=== PATIENT | female | born 1955 | race Caucasian/White ===

== ENCOUNTER → 2016-05-14 | Outpatient (CLI) | payer BC, OTHER ==
--- NOTE | 2016-05-15 08:38 | MM ---
Reason for exam: screening (asymptomatic). Last mammogram was performed 2 years and 1 month ago. History: Patient is postmenopausal. Took hormonal contraceptives for 4 years. Physical Findings: A clinical breast exam by your physician is recommended on an annual basis and results should be correlated with mammographic findings. MG Screening Mammo w CAD Bilateral CC and MLO view(s) were taken. Prior study comparison: April 26, 2014, bilateral MG screening mammo w CAD. July 06, 2010, bilateral digital screening mammo w/CAD. There are scattered fibroglandular densities. Finding: There are vascular calcifications in the posterior position of the right breast. There is no discrete abnormality. ASSESSMENT: Negative, BI-RAD 1 RECOMMENDATION: Routine screening mammogram of both breasts in 1 year.
== END | disposition home or self-care (01) ==
LOC: RADMAMWWP 13:38
PROVIDERS: ATTEND Family Medicine
DX: Z12.31 Encounter for screening mammogram for malignant neoplasm of breast (principal)

== ENCOUNTER → 2017-04-17 | Outpatient (CLI) | payer OTHER ==
--- NOTE | 2017-04-17 12:05 | CT ---
EXAMINATION TYPE: CT sinus wo con DATE OF EXAM: 04/17/2017 COMPARISON: NONE HISTORY: 61-year-old female Chronic sinusitis CT DLP: 618.10 mGycm Automated exposure control for dose reduction was used. TECHNIQUE: Noncontrast axial views of the paranasal sinuses were obtained. Coronal reconstructions pe rformed. FINDINGS: Evidence of prior FESS with medial maxillary antrectomies. There is moderate mucosal thickening withi n the right maxillary sinus and moderate to severe within the left maxillary sinus. Lobulated area at the left maxillary antrum measures 2.5 cm, axial image 20 and could represent a large polyp or mucos al retention cyst. Complete opacification of the left sphenoid sinus and near complete opacification of the right spheno id sinus. Complete opacification of the left ethmoid air cells and anterior right ethmoid air cells. Partial opacification of posterior right ethmoid air cells. Complete opacification of the bilateral frontal sinuses. Hyperdense material is interposed throughout the sinus opacification. No clear calcifications are mirta ntified. No air-fluid level. The imaged brain and orbits are normal in appearance. Visualized mastoid air cells and middle ear cavities are well pneumatized. Reformatted images confirm above findings. IMPRESSION: 1. Prior FESS with medial maxillary antrectomies. There is severe chronic pansinusitis. Hyperdense ma terial involving the sinus opacification probably represents inspissated mucus. Correlate to exclude superimposed aspergillus infection. ENT referral may be of benefit. 2. A 2.5 cm lobulated area at the left maxillary antrum could represent a polyp.
== END | disposition home or self-care (01) ==
LOC: RADCTMAIN 11:14
PROVIDERS: ATTEND Family Medicine
DX: J32.4 Chronic pansinusitis (principal); J34.89 Other specified disorders of nose and nasal sinuses; Z98.890 Other specified postprocedural states
CPT/HCPCS: 70486

== ENCOUNTER → 2018-01-15 | Outpatient (CLI) | payer BC ==
--- NOTE | 2018-01-15 16:13 | BD ---
EXAMINATION TYPE: Axial Bone Density DATE OF EXAM: 01/15/2018 COMPARISON: NONE CLINICAL HISTORY: post menopausal Height: 5'6 Weight: 207 FRAX RISK QUESTIONS: Secondary Osteoporosis: RISK FACTORS HISTORY OF: Postmenopausal woman: y MEDICATIONS: Additional Medications: blood pressure, Advair, nasal spray Additional History: EXAM MEASUREMENTS: Bone mineral densitometry was performed using the [employer] System. Bone mineral density as measured about the Lumbar spine is: ----- L1-L4(G/cm2): 1.309 T Score Values are as follows: ----- L2: 0.7 ----- L3: 1.3 ----- L4: 1.6 ----- L1-L4: 1.1 Bone mineral density about the R hip (g/cm2): 1.008 Bone mineral density about the L hip (g/cm2): 0.929 T Score values are as follows: -----R Neck: -0.2 -----L Neck: -0.8 -----R Total: 0.4 -----L Total: 0.3 IMPRESSION: Normal (Values between +1 and -1 indicate normal bone mass). Consider repeating this study in 5 year s or sooner if there is some new clinical indication. NOTE: T-SCORE=SD OF THE YOUNG ADULT MEAN.
--- NOTE | 2018-01-16 12:08 | MM ---
Reason for exam: screening (asymptomatic). Last mammogram was performed 1 year and 8 months ago. History: Patient is postmenopausal. Took hormonal contraceptives for 4 years. MG 3D Screening Mammo W/Cad Bilateral CC and MLO view(s) were taken. Prior study comparison: May 14, 2016, bilateral MG screening mammo w CAD. April 26, 2014, bilateral MG screening mammo w CAD. There are scattered fibroglandular densities. No discrete abnormality. No significant new finding since most recent study. ASSESSMENT: Negative, BI-RAD 1 RECOMMENDATION: Routine screening mammogram of both breasts in 1 year.
== END ==
LOC: RADMAMWWP 11:59
PROVIDERS: ATTEND Obstetrics & Gynecology
DX: Z12.31 Encounter for screening mammogram for malignant neoplasm of breast (principal); Z78.0 Asymptomatic menopausal state
CPT/HCPCS: 77063; 77067; 77080

== ENCOUNTER 2018-05-28 22:40 | Emergency (ER) | payer BC ==
[2018-05-28] MEDS ORDERED: MAG HYDROX/AL HYDROX/SIMETH 30 ML, HYOSCYAMINE ELIXIR 10 ML, CIMETIDINE HCL 300 MG, LID... PO STA ×4 (23:03)
[2018-05-28 23:11] VITALS: RESP 18
[2018-05-28 23:31] LABS: Anisocytosis Slight; Basophils % (A) 0 %; Eosinophils # (A) 0.3 k/uL (0-0.7); Eosinophils % (A) 4 %; HGB 12.6 gm/dL (11.4-16.0); Lymphocytes # (A) 1.2 k/uL (1.0-4.8); Lymphocytes % (A) 14 %; MCH 26.4 pg (25.0-35.0); MCHC 31.5 g/dL (31.0-37.0); MCV 83.9 fL (80.0-100.0); Mean Platelet Volume 6.5; Monocytes # (A) 0.4 k/uL (0-1.0); Monocytes % (A) 5 %; Neutrophils # (A) 6.6 k/uL (1.3-7.7); Neutrophils % (A) 77 %; Platelet Count 295 k/uL (150-450); RBC 4.77 m/uL (3.80-5.40); RDW 16.1 % (11.5-15.5); WBC 8.6 k/uL (3.8-10.6)
[2018-05-28 23:42] LABS: Albumin 3.9 g/dL (3.5-5.0); Calcium 9.3 mg/dL (8.4-10.2); Potassium 3.4 mmol/L (3.5-5.1); Total Bilirubin 0.4 mg/dL (0.2-1.3)
[2018-05-28 23:44] LABS: Partial Thromboplastin Time 22.4 sec (22.0-30.0); Prothrombin Time 10.3 sec (9.0-12.0)
--- NOTE | 2018-05-28 23:55 | XR ---
EXAM: XR Chest, 2 Views CLINICAL HISTORY: Chest Pain TECHNIQUE: Frontal and lateral views of the chest. COMPARISON: No relevant prior studies available. FINDINGS: Lungs: Nonspecific left basilar opacity may be infectious or inflammatory. Pleural space: Small left pleural effusion. No pneumothorax. Heart: Unremarkable. Mediastinum: Gas and fluid-filled structure in the mediastinum, likely a large hiatal hernia. Bones/joints: No acute osseous abnormality. IMPRESSION: Nonspecific left basilar opacity may be infectious or inflammatory. Large hiatal hernia.
[2018-05-29] MEDS ORDERED: MORPHINE SULFATE 4 MG/ML SYRINGE IVP STA (00:54)
--- NOTE | 2018-05-29 01:33 | CT ---
EXAM: CT Abdomen and Pelvis With Intravenous Contrast CLINICAL HISTORY: Pain TECHNIQUE: Axial computed tomography images of the abdomen and pelvis with intravenous contrast. CTDI is 0.085, 0.085, 13.3, 16 mGy and DLP is 1327. 8 mGy-cm. This CT exam was performed using one or more of the following dose reduction techniques: automated exposure control, adjustment of the mA and/or kV according to patient size, and/or use of iterative reconstruction technique. COMPARISON: No relevant prior studies available. FINDINGS: Lung bases: Unremarkable. No mass. No consolidation. ABDOMEN: Liver: Subcentimeter foci of hypoattenuation in the liver are too small to characterize. Gallbladder and bile ducts: Unremarkable. No calcified stones. Pancreas: Unremarkable. Spleen: Unremarkable. Adrenals: Unremarkable. Kidneys and ureters: Unremarkable. No solid mass. No hydronephrosis. Stomach and bowel: Large paraesophageal hernia containing the gastric antrum. Duodenal and sigmoid diverticulosis without inflammatory change. Bowel is nondilated. PELVIS: Appendix: No findings to suggest acute appendicitis. Bladder: Unremarkable. Reproductive: Unremarkable as visualized. ABDOMEN and PELVIS: Intraperitoneal space: Unremarkable. No free air. Bones/joints: No acute osseous abnormality. Soft tissues: Unremarkable. Vasculature: Unremarkable. No abdominal aortic aneurysm. Lymph nodes: Unremarkable. IMPRESSION: No acute findings.
--- NOTE | 2018-05-29 02:07 | ED ---
General Adult HPI - General Source: patient, family Mode of arrival: ambulatory Limitations: no limitations <Marizol Montoya - Last Filed: 05/29/18 02:54> <Samantha Alonzo - Last Filed: 05/29/18 03:40> - General Chief complaint: Chest Pain Stated complaint: Abd Pain, Shoulder Pain Time Seen by Provider: 05/28/18 22:54 - History of Present Illness Initial comments: 62-year-old female patient presents to the emergency department today for evaluation of midepigastric pain radiating into her chest, left shoulder, and left side of her neck. Patient states symptoms started a few hours ago. Patient states she did have similar symptoms on Saturday and was evaluated at [facility] in [place]. Patient states she did have a cardiac workup and was diagnosed with GERD. Patient states that she is having a burning type pain to the midepigastric region and sharp pains to the left shoulder. She denies any shortness of breath with this. States that she has been taking Zantac twice daily doesn't seem to be helping. States that she has had 3 episodes of similar type pain this week. She denies any fever or chills. Denies any cough or congestion. Patient denies any recent rash, nausea, vomiting, diarrhea, constipation, back pain, numbness, tingling, dizziness, weakness, hematuria, dysuria, urinary urgency, urinary frequency, headache, visual changes, or any other complaints. (Marizol Montoya) - Related Data Home Medications Medication Instructions Recorded Confirmed Calcium Carb-Vit D 250Mg-125Un 1 tab PO DAILY 11/03/13 11/05/13 [Oscal 250+D] Fish Oil/Dha/Epa [Fish Oil 1,200 2 tab PO DAILY 11/03/13 11/05/13 mg Fish Oil] Fluticasone Furoate [Veramyst] 2 spr INTRANASAL DAILY 11/03/13 11/05/13 Fluticasone/Salmeterol [Advair 2 puff INHALATION HS 11/03/13 11/05/13 250-50 Diskus] Irbesartan/Hydrochlorothiazide 1 tab PO DAILY 11/03/13 11/05/13 [Irbesartan-Hctz 300-12.5 mg Tb] Montelukast [Singulair] 10 mg PO HS 11/03/13 11/05/13 Multivitamins, Thera [Multivitamin] 1 tab PO DAILY 11/03/13 11/05/13 Allergies Allergy/AdvReac Type Severity Reaction Status Date / Time aspirin AdvReac Unknown Verified 05/28/18 22:47 Review of Systems ROS Other: All systems not noted in ROS Statement are negative. <Marizol Montoya - Last Filed: 05/29/18 02:54> ROS Other: All systems not noted in ROS Statement are negative. <Samantha Alonzo - Last Filed: 05/29/18 03:40> ROS Statement: Those systems with pertinent positive or pertinent negative responses have been documented in the HPI. Past Medical History Past Medical History: GERD/Reflux, Hypertension History of Any Multi-Drug Resistant Organisms: None Reported Additional Past Surgical History / Comment(s): sinus surgery Past Psychological History: No Psychological Hx Reported Smoking Status: Never smoker Past Alcohol Use History: Occasional Past Drug Use History: None Reported <Marizol Montoya - Last Filed: 05/29/18 02:54> General Exam Limitations: no limitations General appearance: alert, in no apparent distress, other (This is a well- developed, well-nourished adult female patient in no acute distress. Vital signs upon presentation are temperature 97.5F, pulse 79, respirations 20, blood pressure 146/61, pulse ox 97% on room air.) Eye exam: Present: normal appearance, PERRL, EOMI. Absent: scleral icterus, conjunctival injection, periorbital swelling ENT exam: Present: normal exam, normal oropharynx, mucous membranes moist Respiratory exam: Present: normal lung sounds bilaterally. Absent: respiratory distress, wheezes, rales, rhonchi, stridor Cardiovascular Exam: Present: regular rate, normal rhythm, normal heart sounds. Absent: systolic murmur, diastolic murmur, rubs, gallop, clicks GI/Abdominal exam: Present: soft, tenderness (midepigastric tenderness), normal bowel sounds. Absent: distended, guarding, rebound, rigid Neurological exam: Present: alert, oriented X3, CN II-XII intact Psychiatric exam: Present: normal affect, normal mood Skin exam: Present: warm, dry, intact, normal color. Absent: rash <Marizol Montoya - Last Filed: 05/29/18 02:54> Course Vital Signs 05/28/18 05/28/18 05/29/18 22:44 23:01 02:18 Temperature 97.5 F L 98.2 F Pulse Rate 79 76 Respiratory 20 18 18 Rate Blood Pressure 146/61 121/67 O2 Sat by Pulse 97 94 L Oximetry EKG Findings - EKG Comments: EKG Findings:: EKG obtained at 2300 shows normal sinus rhythm with a ventricular rate is 53, WI interval 172, QRS duration 94, QT 378, QTC 460. No evidence of ST elevation or depression. <Marizol Montoya - Last Filed: 05/29/18 02:54> Medical Decision Making - Lab Data Result diagrams: 05/28/18 23:05 05/28/18 23:05 - Radiology Data Radiology results: report reviewed, image reviewed <Marizol Montoya - Last Filed: 05/29/18 02:54> - Lab Data Result diagrams: 05/28/18 23:05 05/28/18 23:05 <Samantha Alonzo - Last Filed: 05/29/18 03:40> - Medical Decision Making 62-year-old female patient presented to the emergency department today for evaluation of midepigastric pain radiating to her chest, left shoulder, and neck. Physical examination did reveal midepigastric tenderness. Labs reviewed and are unremarkable. Troponin negative. EKG unremarkable. Chest x-ray did show large hiatal hernia but no acute cardiopulmonary process. CT abdomen and pelvis was obtained and redemonstrated the large paraesophageal hiatal hernia. Did discuss findings and results with the patient . We did discuss that her hiatal hernias most likely the cause of her symptoms. She is instructed to do small frequent meals and follow soft diet until she is able to follow-up. She is instructed to follow-up for surgical evaluation as soon as possible. Return parameters were discussed in detail. She verbalizes understanding and agrees this plan. (Marizol Montoya) I was available for consultation in the emergency department. The history and physical exam were done by the midlevel provider. I was consulted for this patient's care. I reviewed the case with the midlevel provider and based on their presentation of the patient, I agree with the assessment, medical decision making and plan of care as documented. (Samantha Alonzo) - Lab Data Lab Results 05/28/18 05/28/18 05/28/18 Range/Units 23:05 23:05 23:05 WBC 8.6 (3.8-10.6) k/uL RBC 4.77 (3.80-5.40) m/uL Hgb 12.6 (11.4-16.0) gm/dL Hct 40.0 (34.0-46.0) % MCV 83.9 (80.0-100.0) fL MCH 26.4 (25.0-35.0) pg MCHC 31.5 (31.0-37.0) g/dL RDW 16.1 H (11.5-15.5) % Plt Count 295 (150-450) k/uL Neutrophils % 77 % Lymphocytes % 14 % Monocytes % 5 % Eosinophils % 4 % Basophils % 0 % Neutrophils # 6.6 (1.3-7.7) k/uL Lymphocytes # 1.2 (1.0-4.8) k/uL Monocytes # 0.4 (0-1.0) k/uL Eosinophils # 0.3 (0-0.7) k/uL Basophils # 0.0 (0-0.2) k/uL Anisocytosis Slight PT 10.3 (9.0-12.0) sec INR 1.0 (<1.2) APTT 22.4 (22.0-30.0) sec Sodium 141 (137-145) mmol/L Potassium 3.4 L (3.5-5.1) mmol/L Chloride 104 (98-107) mmol/L Carbon Dioxide 27 (22-30) mmol/L Anion Gap 10 mmol/L BUN 17 (7-17) mg/dL Creatinine 0.92 (0.52-1.04) mg/dL Est GFR (CKD-EPI)AfAm 79 (>60 ml/min/1.73 sqM) Est GFR (CKD-EPI)NonAf 68 (>60 ml/min/1.73 sqM) Glucose 126 H (74-99) mg/dL Calcium 9.3 (8.4-10.2) mg/dL Magnesium 2.0 (1.6-2.3) mg/dL Total Bilirubin 0.4 (0.2-1.3) mg/dL AST 21 (14-36) U/L ALT 22 (9-52) U/L Alkaline Phosphatase 118 (38-126) U/L Troponin I (0.000-0.034) ng/mL Total Protein 7.0 (6.3-8.2) g/dL Albumin 3.9 (3.5-5.0) g/dL 05/28/18 Range/Units 23:05 WBC (3.8-10.6) k/uL RBC (3.80-5.40) m/uL Hgb (11.4-16.0) gm/dL Hct (34.0-46.0) % MCV (80.0-100.0) fL MCH (25.0-35.0) pg MCHC (31.0-37.0) g/dL RDW (11.5-15.5) % Plt Count (150-450) k/uL Neutrophils % % Lymphocytes % % Monocytes % % Eosinophils % % Basophils % % Neutrophils # (1.3-7.7) k/uL Lymphocytes # (1.0-4.8) k/uL Monocytes # (0-1.0) k/uL Eosinophils # (0-0.7) k/uL Basophils # (0-0.2) k/uL Anisocytosis PT (9.0-12.0) sec INR (<1.2) APTT (22.0-30.0) sec Sodium (137-145) mmol/L Potassium (3.5-5.1) mmol/L Chloride (98-107) mmol/L Carbon Dioxide (22-30) mmol/L Anion Gap mmol/L BUN (7-17) mg/dL Creatinine (0.52-1.04) mg/dL Est GFR (CKD-EPI)AfAm (>60 ml/min/1.73 sqM) Est GFR (CKD-EPI)NonAf (>60 ml/min/1.73 sqM) Glucose (74-99) mg/dL Calcium (8.4-10.2) mg/dL Magnesium (1.6-2.3) mg/dL Total Bilirubin (0.2-1.3) mg/dL AST (14-36) U/L ALT (9-52) U/L Alkaline Phosphatase (38-126) U/L Troponin I <0.012 (0.000-0.034) ng/mL Total Protein (6.3-8.2) g/dL Albumin (3.5-5.0) g/dL - Radiology Data Two-view x-ray of the chest is obtained. Report was reviewed in its entirety. Impression by Dr. Bardales shows nonspecific left basilar opacity may be infectious or inflammatory. Large hiatal hernia. CT abdomen and pelvis with contrast was obtained. Report was reviewed in its entirety. Impression by Dr. Bardales shows no acute findings, there was large paraesophageal hiatal hernia. (Marizol Montoya) Disposition Is patient prescribed a controlled substance at d/c from ED?: No Time of Disposition: 02:07 <Mariozl Montoya - Last Filed: 05/29/18 02:54> <Samantha Alonzo - Last Filed: 05/29/18 03:40> Clinical Impression: Chest pain, Hiatal hernia Disposition: HOME SELF-CARE Condition: Good Instructions (If sedation given, give patient instructions): Chest Pain (ED), Hiatal Hernia (ED), Soft Diet (ED) Additional Instructions: Do small frequent meals. Continue medications as directed. Call the surgeon in the morning for further evaluation. Follow-up with your doctor for recheck in 1-2 days. Return to the emergency department immediately for any new, worsening, or concerning symptoms. Referrals: Elizabeth Palafox MD [Primary Care Provider] - 1-2 days Quinten Salas MD [Medical Doctor] - 1-2 days
[2018-05-29 02:19] VITALS: BP 121/67; PULSE 76; TEMP 98.2
== END 2018-05-29 02:15 | disposition home or self-care (01) ==
LOC: EC 22:40
DX: K44.9 Diaphragmatic hernia without obstruction or gangrene (principal); M25.512 Pain in left shoulder; I10 Essential (primary) hypertension; Z98.890 Other specified postprocedural states; Z79.51 Long term (current) use of inhaled steroids; Z79.899 Other long term (current) drug therapy; Z88.6 Allergy status to analgesic agent
CPT/HCPCS: 36415; 93005; 80053; 83735; 84484; 85025; 85610; 85730; 71046; 74177; 99285; Q9967

== ENCOUNTER → 2020-08-23 | Outpatient (CLI) | payer BC ==
--- NOTE | 2020-08-23 10:32 | BD ---
EXAMINATION TYPE: Axial Bone Density DATE OF EXAM: 08/23/2020 COMPARISON: NONE CLINICAL HISTORY: Height: 5 FT 6 1/2 IN Weight: 209 FRAX RISK QUESTIONS: Alcohol (3 or more units per day): NO Family History (Parent hip fracture): NO Glucocorticoids (More than 3mos): NO (Ex: prednisone, prednisolone, methylprednisolone, dexamethasone, and hydrocortisone). History of Fracture in Adulthood: NO Secondary Osteoporosis: 1. Type 1 Diabetes: NO 2. Hyperthyroidism: NO 3. Menopause before 45: NO 4. Malnutrition: NO 5. Chronic liver disease: NO Rheumatoid Arthritis: NO Current Tobacco Use: NO RISK FACTORS HISTORY OF: Surgery to Spine/Hip(right/left)/Wrist (right/left): NO Family History of Osteoporosis: NO Active: YES Diet low in dairy products/other sources of calcium: NO Postmenopausal woman: AGE 54 Take estrogen and/or progesterone medications: NO Lost more than 2 inches in height since high school: NO MEDICATIONS: Additional Medications: BLOOD PRESSURE MEDS, NASAL SPRAY , VITAMINS Additional History: EXAM MEASUREMENTS: Bone mineral densitometry was performed using the [employer] System. Bone mineral density as measured about the Lumbar spine is: ----- L1-L4(G/cm2): 1.327 T Score Values are as follows: ----- L2: 1.4 ----- L3: 1.5 ----- L4: 1.2 ----- L1-L4: 1.2 Bone mineral density has: INCREASED 1.6 % since study of: 2018 Bone mineral density about the R hip (g/cm2): 1.003 Bone mineral density about the L hip (g/cm2): 0.996 T Score values are as follows: -----R Neck: -0.3 -----L Neck: -0.3 -----R Total: 0.4 -----L Total: 0.7 Bone mineral density has: INCREASED 2.8 % since study of: 2018 IMPRESSION: Normal bone mineral density. NOTE: T-SCORE=SD OF THE YOUNG ADULT MEAN.
--- NOTE | 2020-08-23 11:59 | MM ---
Reason for exam: screening (asymptomatic). Last mammogram was performed 2 years and 7 months ago. History: Patient is postmenopausal. Took hormonal contraceptives for 4 years. Physical Findings: A clinical breast exam by your physician is recommended on an annual basis and results should be correlated with mammographic findings. MG Screening Mammo w CAD Bilateral CC and MLO view(s) were taken. Prior study comparison: January 15, 2018, bilateral MG 3d screening mammo w/cad. May 14, 2016, bilateral MG screening mammo w CAD. There are scattered fibroglandular densities. ASSESSMENT: Negative, BI-RAD 1 RECOMMENDATION: Routine screening mammogram of both breasts in 1 year.
== END | disposition home or self-care (01) ==
LOC: RADMAMWWP 08:16
PROVIDERS: ATTEND Family Medicine
DX: Z12.31 Encounter for screening mammogram for malignant neoplasm of breast (principal); Z78.0 Asymptomatic menopausal state
CPT/HCPCS: 77067; 77080

== ENCOUNTER 2021-05-05 11:09 | Emergency (ER) | payer BC ==
[2021-05-05 11:22] VITALS: RESP 18
[2021-05-05] MEDS ORDERED: SODIUM CHLORIDE 0.9% 1,000 ML IV STA (11:59)
[2021-05-05] MEDS ORDERED: ONDANSETRON 4 MG/2 ML VIAL IVP STA (11:59)
[2021-05-05] MEDS ORDERED: SODIUM CHLORIDE 0.9% 500 ML 500 ML IV STA (11:59)
[2021-05-05 12:14] LABS: Basophils % (A) 0 %; Eosinophils # (A) 0.2 k/uL (0-0.7); Eosinophils % (A) 2 %; HCT 46.8 % (34.0-46.0); HGB 15.7 gm/dL (11.4-16.0); Lymphocytes # (A) 1.1 k/uL (1.0-4.8); Lymphocytes % (A) 12 %; MCH 31.5 pg (25.0-35.0); MCHC 33.6 g/dL (31.0-37.0); MCV 93.8 fL (80.0-100.0); Mean Platelet Volume 7.2; Monocytes # (A) 0.4 k/uL (0-1.0); Monocytes % (A) 4 %; Neutrophils # (A) 7.6 k/uL (1.3-7.7); Neutrophils % (A) 82 %; Platelet Count 241 k/uL (150-450); RBC 4.99 m/uL (3.80-5.40); RDW 13.6 % (11.5-15.5); WBC 9.3 k/uL (3.8-10.6)
[2021-05-05 12:20] LABS: Appearance,Urine Clear (Clear); Bilirubin,Urine Negative (Negative); Blood,Urine Negative (Negative); Color,Urine Yellow; Glucose,Urine (UA) Negative (Negative); Ketones,Urine Negative (Negative); Leukocyte Esterase,Urine Trace (Negative); Mucus,Urine Rare /hpf; Nitrite,Urine Negative (Negative); Protein,Urine Negative (Negative); RBC,Urine <1 /hpf (0-5); Specific Gravity,Urine 1.012 (1.001-1.035); Urobilinogen,Urine <2.0 mg/dL (<2.0); WBC,Urine 1 /hpf (0-5)
[2021-05-05 13:02] LABS: Calcium 8.4 mg/dL (8.4-10.2); Total Bilirubin 0.7 mg/dL (0.2-1.3)
[2021-05-05 13:19] LABS: Potassium 4.2 mmol/L (3.5-5.1)
[2021-05-05 13:20] LABS: Albumin 3.7 g/dL (3.5-5.0); Total Protein 7.1 g/dL (6.3-8.2)
--- NOTE | 2021-05-05 13:48 | ED ---
General Adult HPI - General Chief complaint: Nausea/Vomiting/Diarrhea Stated complaint: vomiting, diarrhea Time Seen by Provider: 05/05/21 11:49 Source: patient, RN notes reviewed Mode of arrival: ambulatory Limitations: no limitations - History of Present Illness Initial comments: 65-year-old female presents emergency Department chief complaint of abdominal issues. Patient states that she had a prior hiatal hernia repair 3 years ago. She states of recently she's been having some abdominal pain but states that when she has to have abdominal she starts having abdominal pain diffusely gets very nauseated and vomits. She states that his been getting worse she states that she started getting sick. She denies any dysuria hematuria no chest pain or shortness breath no fevers chills patient did see GI in the recent past in which he told she may have some dumping syndrome. Patient denies any new medications or complaints. - Related Data Home Medications Medication Instructions Recorded Confirmed Calcium Carb-Vit D 250Mg-125Un 1 tab PO DAILY 11/03/13 11/05/13 [Oscal 250+D 3.125 Mcg (125 Iu)] Fish Oil/Dha/Epa [Fish Oil 1,200 2 tab PO DAILY 11/03/13 11/05/13 mg Fish Oil] Fluticasone Furoate [Veramyst] 2 spr INTRANASAL DAILY 11/03/13 11/05/13 Fluticasone/Salmeterol [Advair 2 puff INHALATION HS 11/03/13 11/05/13 250-50 Diskus] Irbesartan/Hydrochlorothiazide 1 tab PO DAILY 11/03/13 11/05/13 [Irbesartan-Hctz 300-12.5 mg Tb] Montelukast [Singulair] 10 mg PO HS 11/03/13 11/05/13 Multivitamins, Thera [Multivitamin] 1 tab PO DAILY 11/03/13 11/05/13 Previous Rx's Medication Instructions Recorded Amoxicillin/Potassium Clav 1 tab PO Q12HR #20 tab 05/05/21 [Augmentin 875-125 Tablet] Ondansetron Odt [Zofran Odt] 4 mg PO Q8HR PRN #14 tab 05/05/21 Allergies Allergy/AdvReac Type Severity Reaction Status Date / Time aspirin AdvReac Unknown Verified 05/28/18 22:47 Review of Systems ROS Statement: Those systems with pertinent positive or pertinent negative responses have been documented in the HPI. ROS Other: All systems not noted in ROS Statement are negative. Past Medical History Past Medical History: GERD/Reflux, Hypertension History of Any Multi-Drug Resistant Organisms: None Reported Additional Past Surgical History / Comment(s): sinus surgery, hiatle hernia Past Psychological History: No Psychological Hx Reported Smoking Status: Never smoker Past Alcohol Use History: Occasional Past Drug Use History: None Reported General Exam Limitations: no limitations General appearance: alert, in no apparent distress Head exam: Present: atraumatic, normocephalic, normal inspection Eye exam: Present: normal appearance, PERRL, EOMI. Absent: scleral icterus, conjunctival injection, periorbital swelling ENT exam: Present: normal exam, normal oropharynx, mucous membranes moist Neck exam: Present: normal inspection, full ROM. Absent: tenderness, meningismus, lymphadenopathy Respiratory exam: Present: normal lung sounds bilaterally. Absent: respiratory distress, wheezes, rales, rhonchi, stridor Cardiovascular Exam: Present: regular rate, normal rhythm, normal heart sounds. Absent: systolic murmur, diastolic murmur, rubs, gallop, clicks GI/Abdominal exam: Present: soft, tenderness (Epigastric), normal bowel sounds. Absent: distended, guarding, rebound, rigid Back exam: Absent: CVA tenderness (R), CVA tenderness (L) Skin exam: Present: warm, dry, intact, normal color. Absent: rash Course Vital Signs 05/05/21 11:19 Temperature 97.8 F Pulse Rate 77 Respiratory 18 Rate Blood Pressure 132/85 O2 Sat by Pulse 98 Oximetry Medical Decision Making - Medical Decision Making 65-year-old presented for abdominal pain which worsened last 1 month. Patient has evidence of colitis known definite diverticulitis though thickening recommending colonoscopy. Patient will be started on antibiotics with close follow-up and colonoscopy - Lab Data Result diagrams: 05/05/21 12:04 05/05/21 12:23 Lab Results 05/05/21 05/05/21 05/05/21 Range/Units 12:04 12:04 12:23 WBC 9.3 (3.8-10.6) k/uL RBC 4.99 (3.80-5.40) m/uL Hgb 15.7 (11.4-16.0) gm/dL Hct 46.8 H (34.0-46.0) % MCV 93.8 (80.0-100.0) fL MCH 31.5 (25.0-35.0) pg MCHC 33.6 (31.0-37.0) g/dL RDW 13.6 (11.5-15.5) % Plt Count 241 (150-450) k/uL MPV 7.2 Neutrophils % 82 % Lymphocytes % 12 % Monocytes % 4 % Eosinophils % 2 % Basophils % 0 % Neutrophils # 7.6 (1.3-7.7) k/uL Lymphocytes # 1.1 (1.0-4.8) k/uL Monocytes # 0.4 (0-1.0) k/uL Eosinophils # 0.2 (0-0.7) k/uL Basophils # 0.0 (0-0.2) k/uL Sodium 137 (137-145) mmol/L Potassium 4.2 (3.5-5.1) mmol/L Chloride 105 (98-107) mmol/L Carbon Dioxide 24 (22-30) mmol/L Anion Gap 8 mmol/L BUN 19 H (7-17) mg/dL Creatinine 0.93 (0.52-1.04) mg/dL Est GFR (CKD-EPI)AfAm 76 (>60 ml/min/1.73 sqM) Est GFR (CKD-EPI)NonAf 66 (>60 ml/min/1.73 sqM) Glucose 97 (74-99) mg/dL Calcium 8.4 (8.4-10.2) mg/dL Total Bilirubin 0.7 (0.2-1.3) mg/dL AST 41 H (14-36) U/L ALT 29 (4-34) U/L Alkaline Phosphatase 92 (38-126) U/L Total Protein 7.1 (6.3-8.2) g/dL Albumin 3.7 (3.5-5.0) g/dL Lipase 51 (23-300) U/L Urine Color Yellow Urine Appearance Clear (Clear) Urine pH 5.0 (5.0-8.0) Ur Specific [place] 1.012 (1.001-1.035) Urine Protein Negative (Negative) Urine Glucose (UA) Negative (Negative) Urine Ketones Negative (Negative) Urine Blood Negative (Negative) Urine Nitrite Negative (Negative) Urine Bilirubin Negative (Negative) Urine Urobilinogen <2.0 (<2.0) mg/dL Ur Leukocyte Esterase Trace H (Negative) Urine RBC <1 (0-5) /hpf Urine WBC 1 (0-5) /hpf Urine Mucus Rare H (None) /hpf Disposition Clinical Impression: Colitis, Abdominal pain, Nausea & vomiting Disposition: HOME SELF-CARE Condition: Stable Instructions (If sedation given, give patient instructions): Abdominal Pain (ED) Additional Instructions: Please return to the Emergency Department if symptoms worsen or any other concerns. Prescriptions: Amoxicillin/Potassium Clav [Augmentin 875-125 Tablet] 1 tab PO Q12HR #20 tab Ondansetron Odt [Zofran Odt] 4 mg PO Q8HR PRN #14 tab PRN Reason: Nausea Is patient prescribed a controlled substance at d/c from ED?: No Referrals: Elizabeth Palafox MD [Primary Care Provider] - 1-2 days Time of Disposition: 14:25
--- NOTE | 2021-05-05 14:17 | CT ---
EXAMINATION TYPE: CT abdomen pelvis w con DATE OF EXAM: 05/05/2021 COMPARISON: CT dated 05/29/2018 HISTORY: Patient complains of vomiting when having a bowel movement. CT DLP: 1440 mGycm Automated exposure control for dose reduction was used. TECHNIQUE: Helical acquisition of images was performed from the lung bases through the pelvis. CONTRAST: Performed without Oral Contrast and with IV Contrast, patient injected with 100 mL of Isovue 370. FINDINGS: LUNG BASES: No significant abnormality is appreciated. LIVER/GB: The hepatic dome is not included in the scan. Tiny right hepatic lobe cyst, stable, otherwi se unremarkable liver and gallbladder. PANCREAS: Atrophic with fatty infiltration. SPLEEN: No significant abnormality is seen. ADRENALS: No significant abnormality is seen. KIDNEYS: No significant abnormality is seen. FREE AIR: No free air is visualized. RETROPERITONEAL ADENOPATHY: None visualized REPRODUCTIVE ORGANS: Retroverted uterus. No gross adnexal mass. URINARY BLADDER: No significant abnormality is seen. PELVIC ADENOPATHY: None visualized. OSSEOUS STRUCTURES: No significant abnormality is seen. BOWEL: Slightly thickened inferior aspect of the esophagus, nonspecific. Nondistended stomach. Duode nal diverticula. Unremarkable duodenum otherwise. Unremarkable small bowel. Colonic diverticulosis mo st evident involving the sigmoid colon. Marked wall thickening of the sigmoid colon with edema which could be related to seen chronic diverticulosis however focal colitis cannot be excluded. No signs of acute diverticulitis. Normal appendix. OTHER: Multiple abdominal aorta. No ascites. IMPRESSION: Markedly thickened sigmoid colon which could be related to chronic diverticulosis however mild focal colitis or underlying colonic lesion cannot be excluded. Recommend correlation with coloscopy results . No convincing evidence of acute diverticulitis. Other incidental findings as described above.
[2021-05-05 14:57] VITALS: BP 140/83; PULSE 86; TEMP 98.2
== END 2021-05-05 14:57 | disposition home or self-care (01) ==
LOC: EC 11:09
DX: K52.9 Noninfective gastroenteritis and colitis, unspecified (principal); R11.2 Nausea with vomiting, unspecified; I10 Essential (primary) hypertension; Z88.6 Allergy status to analgesic agent
CPT/HCPCS: 36415; 80053; 83690; 85025; 81001; 74177; 99284; 96374; 96375; 96361; J2405; Q9967

== ENCOUNTER 2021-05-18 07:39 | Day surgery (SDC) | payer BC ==
[2021-05-17 09:14] VITALS: BMI 31.3
[2021-05-18] MEDS ORDERED: LACTATED RINGERS 1,000 ML IV SCH (07:55)
[2021-05-18] MEDS ORDERED: LIDOCAINE 1% (10MG/ML) FOR IV START INTRADERMA PRN (07:55)
[2021-05-18] MEDS ORDERED: ONDANSETRON 4 MG/2 ML VIAL IVP PRN (07:55)
[2021-05-18 08:25] VITALS: TEMP 97.7
[2021-05-18] MEDS ORDERED: LIDOCAINE 1% INJ 10MG/ML (20 ML MDV) ONE (08:55)
[2021-05-18] MEDS ORDERED: PROPOFOL 10 MG/ML 20 ML VIAL IV ONE (08:55)
--- NOTE | 2021-05-18 08:57 | P.GSHP ---
History of Present Illness H&P Date: 05/18/21 Chief Complaint: Change in bowel habits This is a 65-year-old female has had complaints of diarrhea. She presents today for colonoscopy. Past Medical History Past Medical History: GERD/Reflux, Hypertension Additional Past Medical History / Comment(s): WHEEZING AT NIGHT History of Any Multi-Drug Resistant Organisms: None Reported Past Surgical History: Hernia Repair Additional Past Surgical History / Comment(s): SINUS SURGERY. HIATAL HERNIA REPAIR Past Anesthesia/Blood Transfusion Reactions: No Reported Reaction Past Psychological History: No Psychological Hx Reported Smoking Status: Never smoker Past Alcohol Use History: Occasional Past Drug Use History: None Reported Medications and Allergies Home Medications Medication Instructions Recorded Confirmed Type Fish Oil/Dha/Epa [Fish Oil 1,200 2 tab PO DAILY 11/03/13 05/18/21 History mg Fish Oil] Fluticasone Furoate [Veramyst] 2 spr INTRANASAL DAILY 11/03/13 05/18/21 History Fluticasone/Salmeterol [Advair 2 puff INHALATION DAILY PRN 11/03/13 05/18/21 History 250-50 Diskus] Irbesartan/Hydrochlorothiazide 1 tab PO DAILY 11/03/13 05/18/21 History [Irbesartan-Hctz 300-12.5 mg Tb] Montelukast [Singulair] 10 mg PO HS 11/03/13 05/18/21 History Multivitamins, Thera [Multivitamin] 1 tab PO DAILY 11/03/13 05/18/21 History Calcium Carbonate [Calcium] 600 mg PO DAILY 05/17/21 05/18/21 History Cholecalciferol [Vitamin D3 (25 25 mcg PO DAILY 05/17/21 05/18/21 History Mcg = 1000 Iu)] Allergies Allergy/AdvReac Type Severity Reaction Status Date / Time aspirin AdvReac Unknown Verified 05/18/21 08:21 Surgical - Exam Vital Signs Temp Pulse Resp BP Pulse Ox 97.7 F 67 16 137/79 96 05/18/21 08:19 05/18/21 08:19 05/18/21 08:19 05/18/21 08:19 05/18/21 08:19 - General well developed, well nourished, no distress - Eyes PERRL - ENT normal pinna - Neck no masses - Respiratory normal expansion - Cardiovascular Rhythm: regular - Abdomen Abdomen: soft, non tender Assessment and Plan Assessment: Diarrhea. We'll perform colonoscopy
--- NOTE | 2021-05-18 09:11 | P.OP ---
Date of Procedure: 05/18/21 Preoperative Diagnosis: Diarrhea Postoperative Diagnosis: Diverticulosis Random rectal biopsy pathology pending Procedure(s) Performed: Colonoscopy Anesthesia: MAC Surgeon: Alfonzo Stern Pathology: other (Rectum) Condition: stable Disposition: PACU Description of Procedure: The patient's placed on the endoscopy table in the lateral position. He received IV sedation. Digital rectal exam was performed which revealed no abnormalities. The flexible colonoscope was then placed patient anus and passed throughout the entire colon. The ileocecal valve was visualized. The cecum, ascending and transverse colon appeared normal. In the descending; there is mild diverticular changes. The scope was then brought back the rectum and this appeared normal. However due the patient's symptoms of diarrhea. A random rectal was performed. Scope was withdrawn for patient.
[2021-05-18 09:30] VITALS: BP 117/78; PULSE 51; RESP 18
== END 2021-05-18 09:51 | disposition home or self-care (01) ==
LOC: ORWHC2ENDO 07:39
PROVIDERS: ATTEND Surgery
DX: K62.89 Other specified diseases of anus and rectum (principal); K57.30 Diverticulosis of large intestine without perforation or abscess without bleeding; K21.9 Gastro-esophageal reflux disease without esophagitis; I10 Essential (primary) hypertension; Z98.890 Other specified postprocedural states; Z79.899 Other long term (current) drug therapy; Z88.6 Allergy status to analgesic agent; J45.909 Unspecified asthma, uncomplicated
CPT/HCPCS: 88305; 45380; J2001; J2704

== ENCOUNTER → 2021-08-24 | Outpatient (CLI) | payer BC ==
--- NOTE | 2021-08-25 07:42 | MM ---
Reason for Exam: Screening (asymptomatic). Last screening mammogram was performed 12 month(s) ago. Patient History: Menarche at age 14. First Full-Term at age 22. Postmenopausal. Hormonal Contraceptives for 4 years until age 52. Risk Values: Pearl 5 year model risk: 1.4%. NCI Lifetime model risk: 5.8%. Prior Study Comparison: 05/14/2016 Bilateral Screening Mammogram, [facility]. 01/15/2018 Bilateral Screening Mammogram, [facility]. 08/23/2020 Bilateral Screening Mammogram, [facility]. Tissue Density: There are scattered fibroglandular densities. Findings: Analyzed By CAD. There is no suspicious group of microcalcifications or new suspicious mass in either breast. Overall Assessment: Negative, BI-RAD 1 Management: Screening Mammogram of both breasts in 1 year. A clinical breast exam by your physician is recommended on an annual basis and results should be correlated with mammographic findings. Electronically signed and approved by: [place] M.D. Radiologis
== END | disposition home or self-care (01) ==
LOC: RADMAMWWP 10:43
PROVIDERS: ATTEND Family Medicine
DX: Z12.31 Encounter for screening mammogram for malignant neoplasm of breast (principal)
CPT/HCPCS: 77067

== ENCOUNTER → 2022-08-27 | Outpatient (CLI) | payer MEDICARE ==
--- NOTE | 2022-08-28 08:41 | MM ---
Reason for Exam: Screening (asymptomatic). Last screening mammogram was performed 12 month(s) ago. Patient History: Menarche at age 14. First Full-Term at age 22. Postmenopausal. Hormonal Contraceptives for 4 years until age 52. Risk Values: Pearl 5 year model risk: 1.5%. NCI Lifetime model risk: 5.6%. Prior Study Comparison: 01/15/2018 Bilateral Screening Mammogram, [facility]. 08/23/2020 Bilateral Screening Mammogram, [facility]. 08/24/2021 Bilateral MG screening mammo w CAD, [facility]. Tissue Density: The breast tissue is almost entirely fat. Findings: Analyzed By CAD. There is no suspicious group of microcalcifications or new suspicious mass in either breast. Overall Assessment: Negative, BI-RAD 1 Management: Screening Mammogram of both breasts in [address] [facility] will attempt to contact patient to return for supplemental views and ultrasound if indicated. Patient should continue monthly self-breast exams. A clinical breast exam by your physician is recommended on an annual basis. This exam should not preclude additional follow-up of suspicious palpable abnormalities. Note on Pearl scores and lifetime risk: 1. A Pearl score greater than 3% is considered moderate risk. If this is the case, consider specialist referral to assess eligibility for a risk reducing agent. 2. If overall lifetime risk for the development of breast cancer is 20% or higher, the patient may qualify for future screening with alternating mammogram and breast MRI. Electronically signed and approved by: Justin Vallejo DO
== END | disposition home or self-care (01) ==
LOC: RADMAMWWP 09:21
PROVIDERS: ATTEND Family Medicine
DX: Z12.31 Encounter for screening mammogram for malignant neoplasm of breast (principal); Z78.0 Asymptomatic menopausal state
CPT/HCPCS: 77063; 77067

== ENCOUNTER → 2023-08-29 | Outpatient (CLI) | payer MEDICARE ==
--- NOTE | 2023-08-29 09:51 | BD ---
EXAMINATION TYPE: Axial Bone Density DATE OF EXAM: 08/29/2023 CLINICAL HISTORY: 68 years old Female. ICD-10 CODE: Z78.0 BN DEN Height: 66in Weight: 196lb FRAX RISK QUESTIONS: Secondary Osteoporosis: RISK FACTORS HISTORY OF: MEDICATIONS: EXAM MEASUREMENTS: Bone mineral densitometry was performed using the [employer]. Bone mineral density as measured about the Lumbar spine is: ----- L1-L4(G/cm2): 1.362 T Score Values are as follows: ----- L1: 1.0 ----- L2: 1.4 ----- L3: 2.2 ----- L4: 1.3 ----- L1-L4: 1.5 Z Score Values are as follows: ----- L1: 1.8 ----- L2: 2.2 ----- L3: 3.0 ----- L4: 2.1 ----- L1-L4: 2.3 Bone mineral density has: Increased 2.6% since study of: 08-23-20 Bone mineral density about the R hip (g/cm2): 1.078 Bone mineral density about the L hip (g/cm2): 1.068 T Score values are as follows: -----R Neck: -0.2 -----L Neck: -0.6 -----R Total: 0.6 -----L Total: 0.5 Z Score values are as follows: -----R Neck: 0.8 -----L Neck: 0.4 -----R Total: 1.2 -----L Total: 1.2 Bone mineral density has: Decreased -0.6% since study of: 08-23-20 FRAX%s: The graph provided illustrates a 7.3% chance for a major osteoporotic fx and a 0.4% chance fo r the hips probability for fx in 10 years time. IMPRESSION: Normal (Values between +1 and -1 indicate normal bone mass). Consider repeating this study in 5 year s or sooner if there is some new clinical indication. NOTE: T-SCORE=SD OF THE YOUNG ADULT MEAN.
--- NOTE | 2023-09-01 17:31 | MM ---
Reason for Exam: Screening (asymptomatic). Last screening mammogram was performed 12 month(s) ago. Patient History: Menarche at age 14. First Full-Term at age 22. Postmenopausal. Hormonal Contraceptives for 4 years until age 52. Risk Values: Pearl 5 year model risk: 1.5%. NCI Lifetime model risk: 5.4%. Prior Study Comparison: 08/23/2020 Bilateral Screening Mammogram, [facility]. 08/24/2021 Bilateral MG screening mammo w CAD, [facility]. 08/27/2022 Bilateral MG 3D screening mammo w/cad, [facility]. Tissue Density: There are scattered areas of fibroglandular density. Findings: Analyzed By CAD. There is no suspicious group of microcalcifications or new suspicious mass in either breast. Overall Assessment: Negative, BI-RAD 1 Management: Screening Mammogram of both breasts in 1 year. . Patient should continue monthly self-breast exams. A clinical breast exam by your physician is recommended on an annual basis. This exam should not preclude additional follow-up of suspicious palpable abnormalities. Note on Pearl scores and lifetime risk: 1. A Pearl score greater than 3% is considered moderate risk. If this is the case, consider specialist referral to assess eligibility for a risk reducing agent. 2. If overall lifetime risk for the development of breast cancer is 20% or higher, the patient may qualify for future screening with alternating mammogram and breast MRI. Electronically signed and approved by: Sam Martinez M.D. Radiologist
== END | disposition home or self-care (01) ==
LOC: RADMAMWWP 08:43
PROVIDERS: ATTEND Family Medicine
DX: Z12.31 Encounter for screening mammogram for malignant neoplasm of breast (principal); M85.88 Other specified disorders of bone density and structure, other site; Z78.0 Asymptomatic menopausal state
CPT/HCPCS: 77063; 77067; 77080

== ENCOUNTER 2024-02-29 14:37 | Emergency (ER) | payer MEDICARE ==
[2024-02-29 15:05] VITALS: PULSE 78; RESP 18
--- NOTE | 2024-02-29 16:31 | ED ---
Abdominal Pain HPI - General Source: patient, RN notes reviewed Mode of arrival: ambulatory Limitations: no limitations - History of Present Illness MD Complaint: abdominal pain Onset/Timin -: days(s) Location: epigastric <Siva Ordonez - Last Filed: 02/29/24 16:29> - General Source: patient, RN notes reviewed, old records reviewed Mode of arrival: ambulatory - History of Present Illness MD Complaint: abdominal pain -: days(s) Location: epigastric Quality: cramping, aching, fullness Consistency: intermittent Improves With: nothing Worsens With: nothing Associated Symptoms: nausea, vomiting, diarrhea Treatments Prior to Arrival: other (0) <Gucci Bennett - Last Filed: 02/29/24 20:34> - General Chief Complaint: Abdominal Pain Stated Complaint: abd pain Time Seen by Provider: 02/29/24 14:52 - History of Present Illness Initial Comments: Quick note: This is a 68-year-old female with history of hiatal hernia and GERD presenting with epigastric pain x 6 days. Patient endorses bloating with gas, heartburn and increased diarrhea. Patient states her hiatal hernia has been fixed. Denies fever, chills, chest pain, dyspnea, N/V, constipation, hemato chezia, melena. (Siva Ordonez) This is a 68 female with epigastric abdominal pain and bloating gas-like pain edema with nausea and vomiting some diarrhea earlier in the week (Gucci Bennett) - Related Data Home Medications Medication Instructions Recorded Confirmed Fish Oil/Dha/Epa [Fish Oil 1,200 2 tab PO DAILY 11/03/13 05/18/21 mg Fish Oil] Fluticasone Furoate [Veramyst] 2 spr INTRANASAL DAILY 11/03/13 05/18/21 Fluticasone/Salmeterol [Advair 2 puff INHALATION DAILY PRN 11/03/13 05/18/21 250-50 Diskus] Irbesartan/Hydrochlorothiazide 1 tab PO DAILY 11/03/13 05/18/21 [Irbesartan-Hctz 300-12.5 mg Tb] Montelukast [Singulair] 10 mg PO HS 11/03/13 05/18/21 Multivitamins, Thera [Multivitamin] 1 tab PO DAILY 11/03/13 05/18/21 Calcium Carbonate [Calcium] 600 mg PO DAILY 05/17/21 05/18/21 Cholecalciferol [Vitamin D3 (25 25 mcg PO DAILY 05/17/21 05/18/21 Mcg = 1000 Iu)] Allergies Allergy/AdvReac Type Severity Reaction Status Date / Time aspirin AdvReac Unknown Verified 02/29/24 15:05 Review of Systems ROS Other: All systems not noted in ROS Statement are negative. <Siva Ordonez - Last Filed: 02/29/24 16:29> ROS Other: All systems not noted in ROS Statement are negative. <Gucci Bennett - Last Filed: 02/29/24 20:34> ROS Statement: Those systems with pertinent positive or pertinent negative responses have been documented in the HPI. Past Medical History Past Medical History: GERD/Reflux, Hypertension Additional Past Medical History / Comment(s): WHEEZING AT NIGHT History of Any Multi-Drug Resistant Organisms: None Reported Past Surgical History: Hernia Repair Additional Past Surgical History / Comment(s): SINUS SURGERY. HIATAL HERNIA REPAIR Past Anesthesia/Blood Transfusion Reactions: No Reported Reaction Past Psychological History: No Psychological Hx Reported Smoking Status: Never smoker Past Alcohol Use History: Occasional Past Drug Use History: None Reported <José LuisSiva - Last Filed: 02/29/24 16:29> General Exam Limitations: no limitations <José LuisSiva - Last Filed: 02/29/24 16:29> General appearance: alert, in no apparent distress Head exam: Present: atraumatic, normocephalic, normal inspection Eye exam: Present: normal appearance, PERRL, EOMI. Absent: scleral icterus, conjunctival injection, periorbital swelling ENT exam: Present: normal exam, mucous membranes moist Neck exam: Present: normal inspection. Absent: tenderness, meningismus, lymphadenopathy Respiratory exam: Present: normal lung sounds bilaterally. Absent: respiratory distress, wheezes, rales, rhonchi, stridor Cardiovascular Exam: Present: regular rate, normal rhythm, normal heart sounds. Absent: systolic murmur, diastolic murmur, rubs, gallop, clicks GI/Abdominal exam: Present: soft, normal bowel sounds. Absent: distended, tenderness, guarding, rebound, rigid Extremities exam: Present: normal inspection, full ROM, normal capillary refill. Absent: tenderness, pedal edema, joint swelling, calf tenderness Back exam: Present: normal inspection Neurological exam: Present: alert, oriented X3, CN II-XII intact Psychiatric exam: Present: normal affect, normal mood Skin exam: Present: warm, dry, intact, normal color. Absent: rash <Gucci Bennett - Last Filed: 02/29/24 20:34> - General Exam Comments Initial Comments: Visual Physical Exam Vital signs reviewed General: Well-appearing, nontoxic, no acute distress. Head: Normocephalic, atraumatic Eyes: PERRLA, EOMI ENT: Airway patent Chest: Nonlabored breathing Skin: No visual rash, normal skin tone Neuro: Alert and oriented 3 Musculoskeletal: No gross abnormalities (Siva Ordonez) Course <Gucci Bennett - Last Filed: 02/29/24 20:34> Vital Signs 02/29/24 15:02 Temperature 98.3 F Pulse Rate 78 Respiratory 18 Rate Blood Pressure 157/99 O2 Sat by Pulse 98 Oximetry - Reevaluation(s) Reevaluation #1: 02/29/24 20:33 Medical records reviewed (Gucci Bennett) Reevaluation #2: 02/29/24 20:33 Patient's pain is improved (Gucci Bennett) Reevaluation #3: 02/29/24 20:33 Patient informed of results questions answered (Gucci Bennett) Reevaluation #4: Was pt. sent in by a medical professional or institution (, PA, BODY TRIMMER, urgent care, hospital, or [facility]...) When possible be specific @ -no Did you speak to anyone other than the patient for history (EMS, parent, family, police, friend...)? What history was obtained from this source @ -no Did you review nursing and triage notes (agree or disagree)? Why? @ -agree Are old charts reviewed (outside hosp., previous admission, EMS record, old EKG, old radiological studies, urgent care reports/EKG's, [facility] records)? Report findings @ -yes Differential Diagnosis (chest pain, altered mental status, abdominal pain women, abdominal pain men, vaginal bleeding, weakness, fever, dyspnea, syncope, headache, dizziness, GI bleed, back pain, seizure, CVA, palpatations, mental health, musculoskeletal)? @ -prior EKG interpreted by me (3pts min.). @ -yes X-rays interpreted by me (1pt min.). @ -yes negative for acute disease CT interpreted by me (1pt min.). @ -no U/S interpreted by me (1pt. min.). @ -no What testing was considered but not performed or refused? (CT, X-rays, U/S, labs)? Why? @ -none What meds were considered but not given or refused? Why? @ -none Did you discuss the management of the patient with other professionals (professionals i.e. Dr., PA, BODY TRIMMER, lab, RT, psych nurse, oncology social worker, sheet metal fabricator, teacher, youth probation officer, supervisor case loading)? Give summary @ -no Was smoking cessation discussed for >3mins.? @ -no Was critical care preformed (if so, how long)? @ -no Were there social determinants of health that impacted care today? How? (Homelessness, low income, unemployed, alcoholism, drug addiction, tra nsportation, low edu. Level, literacy, decrease access to med. care, fpc, rehab)? @ -none Was there de-escalation of care discussed even if they declined (Discuss DNR or withdrawal of care, Hospice)? DNR status @ -no What co-morbidities impacted this encounter? (DM, HTN, Smoking, COPD, CAD, Cance r, CVA, ARF, Chemo, Hep., AIDS, mental health diagnosis, sleep apnea, morbid obesity)? @ -none Was patient admitted / discharged? Hospital course, mention meds given and route, prescriptions, significant lab abnormalities, going to OR and other pertinent info. @ - Undiagnosed new problem with uncertain prognosis? @ -no Drug Therapy requiring intensive monitoring for toxicity (Heparin, Nitro, I nsulin, Cardizem)? @ -no Were any procedures done? @ -no Diagnosis/symptom? @ - Acute, or Chronic, or Acute on Chronic? @ -Acute Uncomplicated (without systemic symptoms) or Complicated (systemic symptoms)? @ -Complicated Side effects of treatment? @ -no Exacerbation, Progression, or Severe Exacerbation? @ -exacerbation Poses a threat to life or bodily function? How? (Chest pain, [place], [place], pneumonia, PE, COPD, DKA, ARF, appy, cholecystitis, CVA, Diverticulitis, Homicidal, Suicidal, threat to staff... and all critical care pts) @ -yes (Gucci Bennett) Reevaluation #5: Differential Abdominal Pain Women: Appendicitis, Cholecystitis, diverticulosis, ischemic bowel, pancreatitis, hepatitis, UTI, gastroenteritis, AAA, incarcerated hernia, bowel obstruction, constipation, inflammatory bowel, hepatitis, peptic ulcer disease, splenic infarction, perforated viscus, vulvitis, ovarian torsion, PID, kidney stone, placenta abruption, this is not meant to be an all-inclusive list (Gucci Bennett) Medical Decision Making <Siva Ordonez - Last Filed: 02/29/24 16:29> - Lab Data Result diagrams: 02/29/24 17:14 02/29/24 17:14 - EKG Data -: EKG Interpreted by Me (EKG is sinus 75 [place] 161 QRS 96 QTc 388) <Gucci Bennett - Last Filed: 02/29/24 20:34> - Medical Decision Making I completed the quick note portion of this chart signed JEANINE Graf (Siva Ordonez) - Lab Data Lab Results 02/29/24 02/29/24 02/29/24 Range/Units 17:14 17:14 17:14 WBC 7.4 (3.8-10.6) k/uL RBC 4.87 (3.80-5.40) m/uL Hgb 15.5 (11.4-16.0) gm/dL Hct 44.9 (34.0-46.0) % MCV 92.2 (80.0-100.0) fL MCH 31.8 (25.0-35.0) pg MCHC 34.4 (31.0-37.0) g/dL RDW 13.8 (11.5-15.5) % Plt Count 240 (150-450) k/uL MPV 7.2 Neutrophils % 65 % Lymphocytes % 25 % Monocytes % 5 % Eosinophils % 4 % Basophils % 1 % Neutrophils # 4.8 (1.3-7.7) k/uL Lymphocytes # 1.9 (1.0-4.8) k/uL Monocytes # 0.4 (0-1.0) k/uL Eosinophils # 0.3 (0-0.7) k/uL Basophils # 0.0 (0-0.2) k/uL PT 10.7 (10.0-12.5) sec INR 1.0 (<1.2) APTT 23.2 (22.0-30.0) sec Sodium 141 (137-145) mmol/L Potassium 3.5 (3.5-5.1) mmol/L Chloride 101 (98-107) mmol/L Carbon Dioxide 31 H (22-30) mmol/L Anion Gap 9 mmol/L BUN 18 H (7-17) mg/dL Creatinine 0.91 (0.52-1.04) mg/dL Est GFR (CKD-EPI)AfAm 76 (>60 ml/min/1.73 sqM) Est GFR (CKD-EPI)NonAf 66 (>60 ml/min/1.73 sqM) Glucose 96 (74-99) mg/dL Plasma Lactic Acid Earl (0.7-2.0) mmol/L Calcium 10.4 H (8.4-10.2) mg/dL Total Bilirubin 0.6 (0.2-1.3) mg/dL AST 26 (14-36) U/L ALT 23 (4-34) U/L Alkaline Phosphatase 135 H (38-126) U/L Troponin I (0.000-0.034) ng/mL Total Protein 7.9 (6.3-8.2) g/dL Albumin 4.6 (3.5-5.0) g/dL Amylase 57 (30-110) U/L Lipase 56 (23-300) U/L 02/29/24 02/29/24 Range/Units 17:14 17:14 WBC (3.8-10.6) k/uL RBC (3.80-5.40) m/uL Hgb (11.4-16.0) gm/dL Hct (34.0-46.0) % MCV (80.0-100.0) fL MCH (25.0-35.0) pg MCHC (31.0-37.0) g/dL RDW (11.5-15.5) % Plt Count (150-450) k/uL MPV Neutrophils % % Lymphocytes % % Monocytes % % Eosinophils % % Basophils % % Neutrophils # (1.3-7.7) k/uL Lymphocytes # (1.0-4.8) k/uL Monocytes # (0-1.0) k/uL Eosinophils # (0-0.7) k/uL Basophils # (0-0.2) k/uL PT (10.0-12.5) sec INR (<1.2) APTT (22.0-30.0) sec Sodium (137-145) mmol/L Potassium (3.5-5.1) mmol/L Chloride (98-107) mmol/L Carbon Dioxide (22-30) mmol/L Anion Gap mmol/L BUN (7-17) mg/dL Creatinine (0.52-1.04) mg/dL Est GFR (CKD-EPI)AfAm (>60 ml/min/1.73 sqM) Est GFR (CKD-EPI)NonAf (>60 ml/min/1.73 sqM) Glucose (74-99) mg/dL Plasma Lactic Acid Earl 0.8 (0.7-2.0) mmol/L Calcium (8.4-10.2) mg/dL Total Bilirubin (0.2-1.3) mg/dL AST (14-36) U/L ALT (4-34) U/L Alkaline Phosphatase (38-126) U/L Troponin I <0.012 (0.000-0.034) ng/mL Total Protein (6.3-8.2) g/dL Albumin (3.5-5.0) g/dL Amylase (30-110) U/L Lipase (23-300) U/L Disposition <Siva Ordonez - Last Filed: 02/29/24 16:29> Is patient prescribed a controlled substance at d/c from ED?: No Time of Disposition: 20:30 <Gucci Bennett - Last Filed: 02/29/24 20:34> Clinical Impression: Abdominal pain Disposition: HOME SELF-CARE Condition: Good Instructions (If sedation given, give patient instructions): Abdominal Pain (ED) Referrals: Elizabeth Palafox MD [Primary Care Provider] - 1-2 days
[2024-02-29] MEDS: MAG HYDROX/AL HYDROX/SIMETH 30 ML, HYOSCYAMINE ELIXIR 10 ML, LIDOCAINE VISCOUS 2% 10 ML PO STA (17:15)
[2024-02-29] MEDS: FAMOTIDINE 20 MG/2 ML VIAL IV STA (17:17)
[2024-02-29] MEDS: PANTOPRAZOLE 40 MG/10 ML VIAL IVP STA (17:17)
--- NOTE | 2024-02-29 17:44 | XR ---
EXAMINATION TYPE: XR chest 2V DATE OF EXAM: 02/29/2024 5:24 PM COMPARISON: Chest radiographs from 05/28/2018 CLINICAL INDICATION: Female, 68 years old with history of Epigastric pain; TECHNIQUE: XR chest 2V Frontal and lateral views of the chest. FINDINGS: Lungs/Pleura: There is no evidence of pleural effusion, focal consolidation, or pneumothorax. Pulmonary vascularity: Unremarkable. Heart/mediastinum: Cardiomediastinal silhouette is unremarkable. Hiatal hernia seen on prior no longe r visualized. Musculoskeletal: No acute osseous pathology. IMPRESSION: 1. No acute cardiopulmonary disease/process. 2. Hiatal hernia seen on prior no longer visualized. [facility], , 02/29/2024 5:42 PM
[2024-02-29 17:49] LABS: ALT 23 U/L (4-34); AST 26 U/L (14-36); African American GFR (CKD) 76 (>60 ml/min/1.73 sqM); Albumin 4.6 g/dL (3.5-5.0); Alkaline Phosphatase 135 U/L (38-126); Amylase 57 U/L (30-110); Anion Gap 9 mmol/L; Blood Urea Nitrogen 18 mg/dL (7-17); Calcium 10.4 mg/dL (8.4-10.2); Carbon Dioxide 31 mmol/L (22-30); Chloride 101 mmol/L (98-107); Glucose 96 mg/dL (74-99); Lipase 56 U/L (23-300); Non-African American GFR(CKD) 66 (>60 ml/min/1.73 sqM); Partial Thromboplastin Time 23.2 sec (22.0-30.0); Potassium 3.5 mmol/L (3.5-5.1); Prothrombin Time 10.7 sec (10.0-12.5); Sodium 141 mmol/L (137-145); Total Bilirubin 0.6 mg/dL (0.2-1.3); Total Protein 7.9 g/dL (6.3-8.2)
[2024-02-29 17:50] LABS: Basophils % (A) 1 %; Eosinophils # (A) 0.3 k/uL (0-0.7); Eosinophils % (A) 4 %; HCT 44.9 % (34.0-46.0); HGB 15.5 gm/dL (11.4-16.0); Lymphocytes # (A) 1.9 k/uL (1.0-4.8); Lymphocytes % (A) 25 %; MCH 31.8 pg (25.0-35.0); MCHC 34.4 g/dL (31.0-37.0); MCV 92.2 fL (80.0-100.0); Mean Platelet Volume 7.2; Monocytes # (A) 0.4 k/uL (0-1.0); Monocytes % (A) 5 %; Neutrophils # (A) 4.8 k/uL (1.3-7.7); Neutrophils % (A) 65 %; Platelet Count 240 k/uL (150-450); RBC 4.87 m/uL (3.80-5.40); RDW 13.8 % (11.5-15.5); WBC 7.4 k/uL (3.8-10.6)
--- NOTE | 2024-02-29 20:14 | CT ---
EXAMINATION TYPE: CT abdomen pelvis w con DATE OF EXAM: 02/29/2024 7:35 PM COMPARISON: 05/05/2021 CLINICAL INDICATION: Female, 68 years old with history of abdominal pain; Abdomi nal pain, Bloating, Heart burn. TECHNIQUE: Axial CT abdomen pelvis w con;Sagittal and coronal reformats were created on a separate w orkstation. Contrast used:100 ml mL of Isovue 300 with IV Contrast, (none if empty) Oral contrast used: without Oral Contrast (none if empty) CT DLP: mGycm, Automated exposure control for dose reduction was used. FINDINGS: LOWER CHEST: Unremarkable ABDOMEN LIVER: Unremarkable GALLBLADDER AND BILE DUCTS: Unremarkable. PANCREAS: Unremarkable. SPLEEN: Unremarkable. ADRENAL GLANDS: Unremarkable. KIDNEYS AND URETERS: No evidence of hydronephrosis or renal calculus. The ureters are unremarkable. PELVIS BLADDER: No evidence for wall thickening or mass given limitations of exam. REPRODUCTIVE: Unremarkable. ABDOMEN & PELVIS STOMACH AND BOWEL: Small hiatal hernia, duodenum is unremarkable. No evidence of bowel obstruction. Second portion duodenal diverticulum. Scattered colonic diverticula. PERITONEUM/RETROPERITONEUM: No evidence of pneumoperitoneum or free fluid. VASCULATURE: No evidence of aortic aneurysm. MUSCULOSKELETAL: No acute osseous abnormalities LYMPH NODES: No gross evidence for lymphadenopathy. SOFT TISSUE/ABDOMINAL WALL: Unremarkable IMPRESSION: 1. Gaseous distention of loops of large bowel. No evidence for obstruction. No acute abdominal proce ss. 2. Small hiatal hernia. 3. Colonic diverticulosis. 4. Second portion duodenal diverticulum. 5. Appendix is normal. 6. No obstructive uropathy or renal calculus. [facility], , 02/29/2024 8:12 PM
[2024-02-29] MEDS: ONDANSETRON 4 MG ODT STARTER PACK 2 TAB BTL PO STA (21:02)
[2024-02-29] MEDS: ONDANSETRON ODT 4 MG TAB PO STA (21:06)
[2024-02-29] MEDS: traMADol 50 MG STARTER PACK 3 TAB BTL PO STA (21:06)
[2024-02-29] MEDS: traMADol 50 MG TAB PO STA (21:06)
[2024-02-29 21:08] VITALS: BP 110/80; TEMP 97.7
== END 2024-02-29 21:07 | disposition home or self-care (01) ==
LOC: EC 14:37
DX: K44.9 Diaphragmatic hernia without obstruction or gangrene (principal); K57.10 Diverticulosis of small intestine without perforation or abscess without bleeding; Z88.6 Allergy status to analgesic agent
CPT/HCPCS: 36415; 93005; 80053; 82150; 83605; 83690; 84484; 85025; 85610; 85730; 71046; 74177; 99284; 96374; S0119; Q9967; J2470

== ENCOUNTER → 2024-09-14 | Outpatient (CLI) | payer MEDICARE ==
--- NOTE | 2024-09-14 10:01 | MM ---
Reason for Exam: Screening (asymptomatic). Last mammogram was performed 1 year(s) and 1 month(s) ago. Patient History: Menarche at age 14. First Full-Term at age 22. Postmenopausal. Hormonal Contraceptives for 4 years until age 52. Risk Values: Pearl 5 year model risk: 1.5%. NCI Lifetime model risk: 5.2%. Prior Study Comparison: 08/24/2021 Bilateral MG screening mammo w CAD, [facility]. 08/27/2022 Bilateral MG 3D screening mammo w/cad, [facility]. 08/29/2023 Bilateral MG 3D screening mammo w/cad, [facility]. Tissue Density: There are scattered areas of fibroglandular density. Findings: Analyzed By CAD. There is no suspicious group of microcalcifications or new suspicious mass in either breast. Overall Assessment: Benign, BI-RAD 2 Management: Screening Mammogram of both breasts in 1 year. . Patient should continue monthly self-breast exams. A clinical breast exam by your physician is recommended on an annual basis. This exam should not preclude additional follow-up of suspicious palpable abnormalities. Note on Pearl scores and lifetime risk: 1. A Pearl score greater than 3% is considered moderate risk. If this is the case, consider specialist referral to assess eligibility for a risk reducing agent. 2. If overall lifetime risk for the development of breast cancer is 20% or higher, the patient may qualify for future screening with alternating mammogram and breast MRI. [facility], , 09/14/2024 9:58 AM. Electronically signed and approved by: [place] M.D. [facility]
== END | disposition home or self-care (01) ==
LOC: RADMAMWWP 09:42
PROVIDERS: ATTEND Family Medicine
DX: Z12.31 Encounter for screening mammogram for malignant neoplasm of breast (principal); R92.323 Mammographic fibroglandular density, bilateral breasts; Z78.0 Asymptomatic menopausal state; Z92.0 Personal history of contraception
CPT/HCPCS: 77063; 77067